=== PATIENT | female | born 1960 | race Caucasian/White ===

== ENCOUNTER 2017-12-22 21:38 | Emergency (ER) | payer MEDICAID ==
[~2017-12-22] VITALS: Ht 170.2 cm; Wt 54.4 kg
[~2017-12-22 21:38] MED LIST: ABAC1TAB3 PO; AMOX500C2 PO; CYCL5TAB PO; EPZICOM PO; GABA-532 PO; HYDROCODONE 5/325 PO; NEVI400T PO; ONDA4TAB5 PO; OXYC80TA40 PO; QUET50TA PO; QUET50TA14 PO; RALT400T PO; SUMA100T PO; ZOLP10TA6 PO; [UNRECOGNIZED DRUG - OTHER] PO
[2017-12-22] MEDS ORDERED: LORAZEPAM 0.5 MG TABLET PO ONE (22:00)
[2017-12-22] MEDS ORDERED: HYDROCODONE/APAP 5-325MG TABLET PO ONE (22:00)
[2017-12-22 22:07] LABS: BASOPHILS % (AUTO) 0.4 % (0.0-2.0); EOSINOPHILS # (AUTO) 0.2 K/uL (0.0-0.7); LYMPHOCYTES # (AUTO) 3.7 K/uL (20.0-40.0); MONOCYTES # (AUTO) 0.7 K/uL (2.0-10.0)
[2017-12-22 22:12] LABS: HEMOGLOBIN 13.1 g/dL (10.9-14.3); MEAN CORPUSCULAR HEMOGLOBIN 34.1 uug (24.7-32.8); NEUTROPHILS # (AUTO) 2.3 K/uL (1.8-8.9); WHITE BLOOD COUNT (AUTO) 6.9 K/uL (3.8-11.8)
[2017-12-22 22:15] LABS: EOSINOPHILS % (AUTO) 3.1 % (0.0-7.0); LYMPHOCYTES % (AUTO) 53.4 % (20.5-51.5); MEAN CORPUSCULAR HGB CONC 35 g/dL (32.3-35.6); MEAN CORPUSCULAR VOLUME 96.5 fL (75.5-95.3); MONOCYTES % (AUTO) 10.4 % (0.0-11.0); NEUTROPHILS % (AUTO) 32.7 % (38.5-71.5); PLATELET COUNT (AUTO) 222 K/uL (179-408); RED BLOOD CELL COUNT(AUTO) 3.83 MIL/uL (3.63-4.92)
--- NOTE | 2017-12-22 22:25 | NUR ---
PT IN BED W/ DOG. PT A&OX4. MD VIRK COMPLETED BY MD VENTURA. PT'S BREATHING IS REGULAR AND UNLABORED. PT IS ON HEART MONITOR. AWAITING FURTHER ORDERS.
--- NOTE | 2017-12-22 22:26 | NUR ---
PATIENT HAS DOG AT BEDSIDE. EDUCATED TO KEEP DOG IN HER CASE FOR STAFF/PATIENT SAFETY.
[2017-12-22] MEDS ORDERED: HYDROCODONE/APAP 5-325MG TABLET ONE (22:31)
[2017-12-22] MEDS ORDERED: LORAZEPAM 0.5 MG TABLET ONE (22:32)
[2017-12-22 22:35] LABS: BILIRUBIN,TOTAL 0.3 mg/dL (0.2-1.0); CARBON DIOXIDE 27 mmol/L (21-32); CHLORIDE 105 mmol/L (98-107); CREATININE 1.1 mg/dL (0.6-1.3); GLUCOSE 120 mg/dL (74-106); POTASSIUM 4.2 mmol/L (3.5-5.1); UREA NITROGEN, BLOOD 19 mg/dL (7-18)
[2017-12-22 23:05] LABS: ALANINE AMINOTRANSFERASE 30 U/L (14-59); ALKALINE PHOSPHATASE 110 U/L (50-136); ASPARTATE AMINOTRANSFERASE 28 U/L (15-37); BILIRUBIN,DIRECT < 0.1 mg/dL (0.0-0.2)
[2017-12-22 23:06] LABS: TOTAL PROTEIN, SERUM 6.8 g/dL (6.4-8.2)
--- NOTE | 2017-12-22 23:34 | NUR ---
Ambulated to restroom with stable gait.
[2017-12-23] MEDS ORDERED: KETOROLAC TROMETHAMINE 30 MG INJ IVP ONE
[2017-12-23 00:04] VITALS: BP 101/54
--- NOTE | 2017-12-23 00:05 | NUR ---
Patient discharged to home in stable conditon. Written and verbal after care instructions given. Patient verbalizes understanding of instructions. All belongings with patient. Peripheral IV removed prior to dischrage. Ambulated from ER with stable gait.
[2017-12-23] MEDS ORDERED: KETOROLAC TROMETHAMINE 30 MG INJ ONE (00:07)
== END 2017-12-23 00:12 | disposition home or self-care (01) ==
LOC: ER 21:40
DX: R07.89 Other chest pain (principal); F41.9 Anxiety disorder, unspecified; B02.9 Zoster without complications
CPT/HCPCS: 36415; 71045; 80048; 80076; 84484; 85025; 85730; 93005; 96374; 99285; A4663; J1885; 70030-TC